=== PATIENT | male | born 1965 | race Caucasian/White ===

== ENCOUNTER → 2024-09-06 14:29 | Outpatient (BNVA) | payer OTHER, SELFPAY | PROVIDERS: Visit Provider Thoracic Surgery (Cardiothoracic Vascular Surgery) | DX: T34.832A Frostbite with tissue necrosis of left toe(s), initial encounter (principal); T34.831A Frostbite with tissue necrosis of right toe(s), initial encounter; X31.XXXA Exposure to excessive natural cold, initial encounter ==

== ENCOUNTER → 2024-09-13 13:58 | Outpatient (BNVA) | payer OTHER, SELFPAY | PROVIDERS: Visit Provider Thoracic Surgery (Cardiothoracic Vascular Surgery) | DX: I96 Gangrene, not elsewhere classified (principal); T34.831 Frostbite with tissue necrosis of right toe(s); T34.832 Frostbite with tissue necrosis of left toe(s); X31.XXXD Exposure to excessive natural cold, subsequent encounter ==

== ENCOUNTER → 2024-09-20 14:36 | Outpatient (BNVA) | payer OTHER, SELFPAY | PROVIDERS: Visit Provider Thoracic Surgery (Cardiothoracic Vascular Surgery) | DX: I96 Gangrene, not elsewhere classified (principal); T34.831 Frostbite with tissue necrosis of right toe(s); T34.832 Frostbite with tissue necrosis of left toe(s); X31.XXXD Exposure to excessive natural cold, subsequent encounter ==

== ENCOUNTER → 2024-09-27 14:11 | Outpatient (BNVA) | payer OTHER, SELFPAY | PROVIDERS: Visit Provider Thoracic Surgery (Cardiothoracic Vascular Surgery) | DX: I96 Gangrene, not elsewhere classified (principal); T34.831 Frostbite with tissue necrosis of right toe(s); T34.832 Frostbite with tissue necrosis of left toe(s); X31.XXXD Exposure to excessive natural cold, subsequent encounter | CPT/HCPCS: 11750; 97597 ==

== ENCOUNTER → 2024-10-04 14:57 | Outpatient (BNVA) | payer OTHER, SELFPAY | PROVIDERS: Visit Provider Thoracic Surgery (Cardiothoracic Vascular Surgery) | DX: I96 Gangrene, not elsewhere classified (principal); T34.831 Frostbite with tissue necrosis of right toe(s); T34.832 Frostbite with tissue necrosis of left toe(s); X31.XXXD Exposure to excessive natural cold, subsequent encounter | CPT/HCPCS: 97597 ==

== ENCOUNTER → 2024-10-11 14:14 | Outpatient (BNVA) | payer OTHER, SELFPAY | DX: I96 Gangrene, not elsewhere classified (principal); T34.831 Frostbite with tissue necrosis of right toe(s); T34.832 Frostbite with tissue necrosis of left toe(s); X31.XXXD Exposure to excessive natural cold, subsequent encounter | CPT/HCPCS: 97597 ==

== ENCOUNTER → 2024-10-18 14:37 | Outpatient (BNVA) | payer OTHER, SELFPAY | PROVIDERS: Visit Provider Thoracic Surgery (Cardiothoracic Vascular Surgery) | DX: I96 Gangrene, not elsewhere classified (principal); T34.831 Frostbite with tissue necrosis of right toe(s); T34.832 Frostbite with tissue necrosis of left toe(s); X31.XXXD Exposure to excessive natural cold, subsequent encounter | CPT/HCPCS: 97597 ==

== ENCOUNTER → 2024-10-25 14:44 | Outpatient (BNVA) | payer OTHER, SELFPAY | DX: I96 Gangrene, not elsewhere classified (principal); T34.831 Frostbite with tissue necrosis of right toe(s); X31.XXXD Exposure to excessive natural cold, subsequent encounter | CPT/HCPCS: 97597; A6021 ==

== ENCOUNTER → 2024-11-01 15:36 | Outpatient (BNVA) | payer OTHER, SELFPAY | DX: I96 Gangrene, not elsewhere classified (principal); T34.831 Frostbite with tissue necrosis of right toe(s); X31.XXXD Exposure to excessive natural cold, subsequent encounter | CPT/HCPCS: 97597; A6021 ==

== ENCOUNTER → 2024-11-08 15:15 | Outpatient (BNVA) | payer OTHER, SELFPAY | PROVIDERS: Visit Provider Thoracic Surgery (Cardiothoracic Vascular Surgery) | DX: I96 Gangrene, not elsewhere classified (principal); T34.831 Frostbite with tissue necrosis of right toe(s); X31.XXXD Exposure to excessive natural cold, subsequent encounter | CPT/HCPCS: 97597; J9999 ==

== ENCOUNTER → 2024-11-15 15:17 | Outpatient (BNVA) | payer OTHER, SELFPAY | DX: I96 Gangrene, not elsewhere classified (principal); L97.511 Non-pressure chronic ulcer of other part of right foot limited to breakdown of skin; G62.9 Polyneuropathy, unspecified | CPT/HCPCS: 97597 ==

== ENCOUNTER → 2024-11-23 13:08 | Outpatient (BNVA) | payer OTHER, SELFPAY | PROVIDERS: Visit Provider Thoracic Surgery (Cardiothoracic Vascular Surgery) | DX: Z09 Encounter for follow-up examination after completed treatment for conditions other than malignant neoplasm (principal); Z87.2 Personal history of diseases of the skin and subcutaneous tissue | CPT/HCPCS: 99202 ==